=== PATIENT | male | born 1985 | race Caucasian/White ===

== ENCOUNTER 2018-10-08 16:00 | Outpatient (CLI) | payer OTHER | END 2018-10-08 16:01 | disposition home or self-care (01) | LOC: SLEEPLAB 16:00 | PROVIDERS: ATTEND Internal Medicine | DX: G47.33 Obstructive sleep apnea (adult) (pediatric) (principal); G47.10 Hypersomnia, unspecified; R06.89 Other abnormalities of breathing; I10 Essential (primary) hypertension | CPT/HCPCS: 95806 ==